=== PATIENT | female | born 1990 | race Caucasian/White ===

== ENCOUNTER 2018-08-04 19:10 | Inpatient (IN) ==
[2018-08-05] MEDS: Sod Chloride 0.9% Inj 1,000 ML IV.CONT SCH ×2 (06:37→18:48)
[2018-08-05 07:05] LABS: Chloride 106 meq/L (98-107); Potassium 3.8 meq/L (3.5-5.1); Sodium 139 meq/L (136-145)
[2018-08-05 07:10] LABS: Calcium 8.1 mg/dL (8.5-10.1)
[2018-08-05 07:11] LABS: Albumin 2.9 g/dL (3.4-5.0); Anion Gap 8 meq/L (5-15); Blood Urea Nitrogen 4 mg/dL (7-18); Carbon Dioxide 25.5 meq/L (21.0-32.0); Glucose,Random 88 mg/dL (74-106)
[2018-08-05 07:14] LABS: Alanine Aminotransferase 677 U/L (10-53); Aspartate Aminotransferase 330 U/L (15-37); Glomerular Filtration Rate Greater Than 89 mL/min (>89)
[2018-08-05 07:16] LABS: Total Protein 7.2 g/dL (6.4-8.2)
[2018-08-05 07:17] LABS: Alkaline Phosphatase 445 U/L (45-117)
--- NOTE | 2018-08-05 08:07 | P.HPIM ---
History of Present Illness Primary Care Physician: UNKNOWN Chief Complaint: Jaundice History of Present Illness: patient is a 28 y/o female with no significant past medical history, IVDA, who presented to ER with Jaundice. she says that she started to have abdominal pain yesterday. pain was more or less epigastric and fairly constant. pain was associated with nausea but with no emesis, change in BM, fever or chills. she says that she noticed that ' her eyes were yellow yesterday'. Review of Systems Review of Systems: all other systems reviewed are negative [facility] Medical History Medical History Hx of intravenous drug use, in remission (Acute) Surgical History Surgical History Hx of section (Acute) Social History Social History Substance History: Past History Second Hand Smoke Exposure: Yes Smoking Status: Current every day smoker Tobacco Type: Cigarettes How Often Do You Have a Drink Containing Alcohol: Never Medications and Allergies Allergies Allergy/AdvReac Type Severity Reaction Status Date / Time No Known Allergies Allergy Verified 08/04/18 19:31 Home Medications Medication Instructions Recorded Confirmed Type No Known Home Medications 08/04/18 08/04/18 History Active Medications: Active Medications Ceftriaxone Sodium 1,000 mg/ (Sodium Chloride) 100 mls @ 200 mls/hr IV.SIG Q24H MIRELA Sodium Chloride (Ns Inj) 1,000 mls @ 100 mls/hr IV.CONT .Q10H MIRELA Last Admin: 08/05/18 06:37 Dose: 100 mls/hr Ondansetron HCl (Zofran Inj) 4 mg IV.PUSH Q6H PRN PRN Reason: NAUSEA OR VOMITING Sodium Chloride (Ns Flush) 2 ml IV.FLUSH BID MIRELA Sodium Chloride (Ns Flush) 2 ml IV.FLUSH PRN PRN PRN Reason: FLUSH AFTER USING IV ACCESS Physical Exam Vital signs: Last Vital Signs Temp 98.5 F 08/05/18 04:00 Pulse 66 08/05/18 04:00 Resp 16 08/05/18 04:00 BP 110/69 08/05/18 04:00 Pulse Ox 98 08/05/18 04:00 Intake & Output 08/03/18 08/04/18 08/05/18 08/06/18 06:59 06:59 06:59 06:59 Weight 74 kg Constitutional no acute distress Routine HEENT Exam Eye: Present PERRL Comments: yellowish discoloration of the conjunctivae. Routine Neck Exam Present supple Routine Respiratory Exam Present CTA bilaterally Routine Cardiovascular Exam Present RRR Routine Abdominal Exam Present soft and tenderness Comments: mild epigastric tenderness Routine Extremities Exam Comments: no pedal edema. Routine Neurological Exam Present alert and oriented X3 Results Labs CBC & Chem 7: 08/05/18 08:36 08/05/18 05:15 Caprini VTE Risk Assessment Caprini VTE Risk Assessment: No/Low Risk (score <= 1) Caprini Risk Assessment Model: Point Value = 1 Point Value = 2 Point Value = 3 Point Value = 5 Age 41-60 Minor surgery BMI > 25 kg/m2 Swollen legs Varicose veins or History of unexplained or recurrent spontaneous Oral contraceptives or hormone replacement Sepsis (< 1 month) Serious lung disease, including pneumonia (< 1 month) Abnormal pulmonary function Acute myocardial infarction Congestive heart failure (< 1 month) History of inflammatory bowel disease Medical patient at bed rest Age 61-74 Arthroscopic surgery Major open surgery (> 45 min) Laparoscopic surgery (> 45 min) Malignancy Confined to bed (> 72 hours) Immobilizing plaster cast Central venous access Age >= 75 History of VTE Family history of VTE Factor V Leiden Prothrombin [id number] Lupus anticoagulant Anticardiolipin antibodies Elevated serum homocysteine Heparin-induced thrombocytopenia Other congenital or acquired thrombophilia Stroke (< 1 month) Elective arthroplasty Hip, pelvis, or leg fracture Acute spinal cord injury (< 1 month) Prophylaxis Regimen: Total Risk Factor Score Risk Level Prophylaxis Regimen 0-1 Low Early ambulation 2 Moderate Order ONE of the following: *Sequential Compression Device (SCD) *Heparin 5000 units SQ BID 3-4 Higher Order ONE of the following medications: *Heparin 5000 units SQ TID *Enoxaparin/Lovenox 40 mg SQ daily (WT < 150 kg, CrCl > 30 mL/min) *Enoxaparin/Lovenox 30 mg SQ daily (WT < 150 kg, CrCl > 10-29 mL/min) *Enoxaparin/Lovenox 30 mg SQ BID (WT < 150 kg, CrCl > 30 mL/min) AND/OR *Sequential Compression Device (SCD) 5 or more Highest Order ONE of the following medications: *Heparin 5000 units SQ TID (Preferred with Epidurals) *Enoxaparin/Lovenox 40 mg SQ daily (WT < 150 kg, CrCl > 30 mL/min) *Enoxaparin/Lovenox 30 mg SQ daily (WT < 150 kg, CrCl > 10-29 mL/min) *Enoxaparin/Lovenox 30 mg SQ BID (WT < 150 kg, CrCl > 30 mL/min) AND *Sequential Compression Device (SCD) Assessment and Plan Plan A/P - Jaundice/ acute HAV infection abdominal sonogram pending. GI consulted. will monitor the LFT's. -possible UTI started on IV Rocephin- follow the UC. Discussed Condition With: the patient. Discharge Planning: home when stable and GI w/u completed. H&P: Quality VTE Deep Vein Thrombosis/Pulmonary Embolism Present on Admission: No
[2018-08-05 08:57] LABS: Hematocrit 37.1 % (35.0-46.0); Hemoglobin 12.1 gm/dL (11.6-15.3); Mean Corpuscular HGB Conc 32.5 % (32.0-36.0); Mean Corpuscular Hemoglobin 28.2 pg (27.0-34.0); Mean Corpuscular Volume 86.7 fL (80.0-100.0); Mean Platelet Volume 8.5 fL (7.0-11.0); Platelet Count 381 th/mm3 (150-450); Red Blood Count 4.28 mil/mm3 (4.00-5.30); Red Cell Distribution Width 13.8 % (11.6-17.2); White Blood Count 5.9 th/mm3 (4.0-11.0)
--- NOTE | 2018-08-05 09:25 | US ---
EXAM DATE: 08/05/2018 8:26 AM EST AGE/SEX: 28 years / Female INDICATIONS: Painless jaundice with nausea and vomiting. CLINICAL DATA: This is the patient's initial encounter. Patient reports that signs and symptoms have been present for 3 days and indicates a pain score of 0/10. MEDICAL/SURGICAL HISTORY: . History of IVDU. section. COMPARISON: [facility], CT ABDOMEN & PELVIS W CONTRAST, 08/04/2018. . MEASUREMENTS: Liver:__ 17.1 cm. Common Bile Duct:__ 4mm. FINDINGS: Liver: Slightly less than 1 cm hyperechoic lesion in the posterior aspect of the left lobe of the li sahra is presumably small hemangioma. No evidence of biliary ductal dilatation. Portal Vein: Hepatopedal flow seen in portal vein. Common Duct: No intraluminal mass or stone visualized. Gallbladder: Nondistended with moderate wall thickening and likely minimal pericholecystic fluid. No definite stones Pancreas: The visualized portions are within normal limits Right Kidney: Increased echogenicity. No mass or hydronephrosis. Other: None. CONCLUSION: 1. Small probable left lobe liver hemangioma 2. Abnormal gallbladder appearance Electronically signed by: Francois Chapman MD Board Certified Radiologist 08/05/2018 9:23 AM EST
[2018-08-05 09:44] LABS: Lymphocytes 36 % (9-44); Monocytes 8 % (0-8); Platelet Estimate Normal (Normal); Platelet Morphology Normal (Normal); RBC Morphology Normal (Normal)
[2018-08-05 10:15] LABS: Amphetamine Screen,Urine Neg (Neg)
[2018-08-05 10:21] LABS: Barbiturate Screen,Urine Neg (Neg)
[2018-08-05 10:23] LABS: Cannabinoid Screen,Urine Neg (Neg)
[2018-08-05 10:24] LABS: Cocaine Screen,Urine Neg (Neg)
[2018-08-05 10:26] LABS: Opiate Screen,Urine Neg (Neg)
[2018-08-05] MEDS ORDERED: Sincalide Inj 5 MCG Vial IV.PUSH ONE (17:14)
--- NOTE | 2018-08-05 17:48 | P.CONGS ---
[facility] Gen Surgery Consult Note Consult date: 08/05/18 Reason for consult: abdominal pain Requesting physician: Luigi Bryson Narrative: This is a 28 year old female with a past medical history of IVDA that presented to the ED with acute onset of yellowing of her skin that she first noticed Sunday with abdominal pain, nausea and vomiting. The patient reports that several family members in her household have abdominal pain, nausea and vomiting. She reports that she has used IV drugs in the past but has been clean for the past 18 months. She began using again about a week ago. She recently moved back to the area from [place]. A CT abdomen/pelvis was obtained which shows a collapsed gallbladder with diffuse gallbladder wall thickening. An US of the gallbladder shows the gallbladder wall thickening with mild pericholecystic fluid. Her liver enzymes are elevated: total bilirubin 5.7; AST 330; ALT 445; alk phos 445. Her serology is positive for hepatis A. A General Surgery consultation has been requested. Review of Systems All other systems reviewed negative except as stated in [facility] - History History Provided By: Patient - Medical History Medical History: Medical History (Last Updated 08/05/18 @ 17:47 by CRISTY Garcia) Intravenous drug abuse - Surgical History Surgical History: Surgical History (Last Reviewed 08/05/18 @ 17:42 by CRISTY Garcia) Hx of section - Tobacco History Second Hand Smoke Exposure: Yes Tobacco Use In Past 30 Days: Yes Smoking Status: Current every day smoker Tobacco Type: Cigarettes - Alcohol History How Often Do You Have a Drink Containing Alcohol: Never - Substance Use History Substance History: Active Abuse Medications and Allergies Allergies Allergy/AdvReac Type Severity Reaction Status Date / Time No Known Allergies Allergy Verified 08/04/18 19:31 Active Medications: Active Medications Ceftriaxone Sodium 1,000 mg/ (Sodium Chloride) 100 mls @ 200 mls/hr IV.SIG Q24H MIRELA Last Admin: 08/05/18 08:43 Dose: 200 mls/hr Sodium Chloride (Ns Inj) 1,000 mls @ 100 mls/hr IV.CONT .Q10H MIRELA Last Admin: 08/05/18 06:37 Dose: 100 mls/hr Ondansetron HCl (Zofran Inj) 4 mg IV.PUSH Q6H PRN PRN Reason: NAUSEA OR VOMITING Sincalide (Kinevac Inj) 0.7 mcg 0.01 mcg/kg (0.7 mcg) IV.PUSH ONCE ONE Stop: 08/05/18 17:15 Sodium Chloride (Ns Flush) 2 ml IV.FLUSH BID MIRELA Sodium Chloride (Ns Flush) 2 ml IV.FLUSH PRN PRN PRN Reason: FLUSH AFTER USING IV ACCESS Exam Vital signs: Vital Signs 08/05/18 04:00 08/05/18 08:00 08/05/18 12:00 Temperature 98.5 F 98.8 F 98.4 F Pulse Rate 66 63 64 Respiratory Rate 16 20 20 Blood Pressure 110/69 115/66 103/56 L Pulse Oximetry 98 98 96 Intake & Output 08/04/18 08/05/18 08/05/18 18:59 06:59 18:59 Weight 74 kg Other: Weight On Admission 74 kg Narrative: GENERAL: 28 year old female appearing older than her stated age resting in bed in no acute distress. SKIN: Warm and dry. She is mildly jaundice. HEAD: Atraumatic. Normocephalic. EYES: Pupils equal and round. No injection or drainage. Sclera with a slight hue of yellow. ENT: No nasal bleeding or discharge. Mucous membranes pink and moist. She has very poor dentition. NECK: Trachea midline. CARDIOVASCULAR: Regular rate and rhythm. RESPIRATORY: No accessory muscle use. Clear to auscultation. Breath sounds equal bilaterally. GASTROINTESTINAL: Abdomen soft, nondistended. She has very mild RUQ tenderness with deep palpation. She has a well healed low transverse scar. MUSCULOSKELETAL: Extremities without clubbing, cyanosis, or edema. No obvious deformities. NEUROLOGICAL: Awake and alert. No obvious cranial nerve deficits. Motor grossly within normal limits. Five out of 5 muscle strength in the arms and legs. Normal speech. PSYCHIATRIC: Appropriate mood and affect; insight and judgment normal. Results - Labs 08/05/18 08:36 08/06/18 05:30 Laboratory Results - last 24 hr 08/05/18 08/05/18 08/05/18 05:15 08:36 09:45 CBC w Diff Slide review pending WBC 5.9 RBC 4.28 Hgb 12.1 Hct 37.1 MCV 86.7 MCH 28.2 MCHC 32.5 RDW 13.8 Plt Count 381 MPV 8.5 WBC Differential Manual diff final Seg Neuts % (Manual) 56 Lymphocytes % (Manual) 36 Monocytes % (Manual) 8 Abs Neuts (Manual) 3.3 Differential Comment . Platelet Estimate Normal Platelet Morphology Normal RBC Morphology Normal Sodium 139 Potassium 3.8 Chloride 106 Carbon Dioxide 25.5 Anion Gap 8 BUN 4 L Creatinine 0.60 Estimated GFR Greater than 89 Random Glucose 88 Calcium 8.1 L Total Bilirubin 5.7 H AST 330 H ALT 677 H Alkaline Phosphatase 445 H Total Protein 7.2 Albumin 2.9 L Urine Opiates Screen Neg Ur Barbiturates Screen Neg Ur Amphetamines Screen Neg U Benzodiazepines Scrn Neg Urine Cocaine Screen Neg U Cannabinoids Screen Neg - Imaging Imaging: ITS Impressions Gallbladder Ultrasound 08/05/18 00:00 CONCLUSION: 1. Small probable left lobe liver hemangioma 2. Abnormal gallbladder appearance CT scan - abdomen: image reviewed US - abdomen: image reviewed Assessment and Plan - Plan 28 year old female with elevated LFTs; Hepatitis A; abdominal pain -Repeat LFTs tomorrow -Clear liquids tonight; NPO after MN -Findings of CT and US may be related to acute findings of hepatitis A -Will follow up on labs and exam tomorrow and make further recommendations -Thank you for this consult; We will continue to follow Discussed Condition With: Dr. Mariela Hayes - Attending Attestation The exam, history, and the medical decision-making described in the above note were completed with the assistance of the mid-level provider. I reviewed and agree with the findings presented. I attest that I had a [id number] encounter with the patient on the same day, and personally performed and documented my assessment and findings in the medical record. likely hepatitis no acute gallbladder issues needs fu with GI fu with surgery if persistent RUQ pain after hepatitis resolves
--- NOTE | 2018-08-05 18:24 | MB ---
cc: Luigi Bryson MD,Brittney CHOWDHURY DATE: 08/05/2018 A patient of Brittney Perez MD. REASON FOR CONSULTATION: Upper abdominal pain, nausea, vomiting, elevated liver function tests. HISTORY OF PRESENT ILLNESS: Ms. Hayes is a 28-year-old with a history of IVDA who basically presented to the emergency room with yellowness of the skin. She has also been complaining of right upper quadrant discomfort associated with nausea and vomiting for a few days. She states she does use intravenous Dilaudid. Last use was yesterday. She denies any alcohol or any other substance abuse. She says she has had no previous problems with her liver or her gallbladder that she knows of. REVIEW OF SYSTEMS: The patient is jaundiced and has right upper quadrant discomfort at this time. FAMILY HISTORY: None given. PAST SURGICAL HISTORY: None except section. SOCIAL HISTORY: The patient is a smoker. No alcohol reported. Uses intravenous Dilaudid. ALLERGIES: NONE DOCUMENTED. MEDICINES ON ADMISSION: None. PHYSICAL EXAMINATION: GENERAL: Reveals a well-nourished lady in no apparent distress. VITAL SIGNS: Stable. HEAD AND NECK: Icteric sclerae. LUNGS: Bilateral air entry with rales. ABDOMEN: Soft. Tenderness in the right upper quadrant. No guarding, no rigidity. CENTRAL NERVOUS SYSTEM: Nonfocal. RECTAL: Deferred at this time. LABORATORY DATA: Reveal total bilirubin 5.7, AST 330, ALT 677, alkaline phosphatase 445. White cell count 5.9, hemoglobin 12.1. Ultrasound of the right upper quadrant shows a gallbladder consistent with cholecystitis. IMPRESSION: Acalculous cholecystitis, possible hepatitis. RECOMMENDATIONS: HIDA scan has been ordered. General surgery consult has been requested. Hepatitis profile has also been requested. Continue to monitor labs. Further recommendations to follow based on the above. Thank you for this referral. MD RANDALL Sharma/jon , 05:19 PM , 05:26 PM
[2018-08-05 23:01] LABS: Hepatitis A IgM Antibody Reactive (Nonreactive); Hepatitits B Surface Antigen Nonreactive (Nonreactive)
[2018-08-06] MEDS: Sod Chloride 0.9% Inj 1,000 ML IV.CONT SCH ×3 (03:46→14:24)
[2018-08-06 06:48] LABS: Chloride 108 meq/L (98-107); Potassium 4.1 meq/L (3.5-5.1); Sodium 140 meq/L (136-145)
[2018-08-06 06:52] LABS: Calcium 8.3 mg/dL (8.5-10.1)
[2018-08-06 06:53] LABS: Albumin 2.7 g/dL (3.4-5.0); Anion Gap 7 meq/L (5-15); Blood Urea Nitrogen 4 mg/dL (7-18); Carbon Dioxide 24.6 meq/L (21.0-32.0); Glucose,Random 84 mg/dL (74-106)
[2018-08-06 06:56] LABS: Alanine Aminotransferase 510 U/L (10-53); Aspartate Aminotransferase 268 U/L (15-37); Glomerular Filtration Rate Greater Than 89 mL/min (>89)
[2018-08-06 06:58] LABS: Total Protein 6.9 g/dL (6.4-8.2)
[2018-08-06 06:59] LABS: Alkaline Phosphatase 501 U/L (45-117)
--- NOTE | 2018-08-06 08:15 | P.PNIM ---
Subjective Interval history: f/u; elevated LFT's in no acute distress. denies pain today. no fever. Physical Exam Vital signs: Last Vital Signs Temp 98.4 F 08/06/18 00:00 Pulse 67 08/06/18 00:00 Resp 20 08/06/18 00:00 BP 104/62 08/06/18 00:00 Pulse Ox 98 08/06/18 00:00 Intake & Output 08/04/18 08/05/18 08/06/18 08/07/18 06:59 06:59 06:59 06:59 Intake Total 2099 Balance 2099 Weight 74 kg 73.8 kg Constitutional no acute distress Routine Respiratory Exam Present CTA bilaterally Routine Cardiovascular Exam Present RRR Routine Abdominal Exam Present soft Routine Extremities Exam Comments: no pedal edema. Routine Neurological Exam Present alert and oriented X3 Results Labs CBC & Chem 7: 08/05/18 08:36 08/06/18 05:30 Imaging Imaging: Impressions Gallbladder Ultrasound 08/05/18 00:00 CONCLUSION: 1. Small probable left lobe liver hemangioma 2. Abnormal gallbladder appearance Assessment and Plan Plan A/P - Jaundice/ acute HAV infection vs acalculous cholecystitis GI and general surgery consulted- will continue to monitor LFT's. -possible UTI started on IV Rocephin- follow the UC. Discharge Planning: home when stable and cleared by GI and general surgery. Progress Note: Quality VTE Deep Vein Thrombosis/Pulmonary Embolism Present on Admission: No
--- NOTE | 2018-08-06 16:31 | P.PNGI ---
Subjective Interval history: Doing well, still icteric Physical Exam Vital signs: Vital Signs 08/05/18 20:00 08/06/18 00:00 08/06/18 08:00 Temperature 98.3 F 98.4 F 98.0 F Pulse Rate 67 67 59 L Respiratory Rate 20 20 15 Blood Pressure 99/63 L 104/62 111/72 Pulse Oximetry 97 98 97 08/06/18 12:00 Temperature 98.5 F Pulse Rate 63 Respiratory Rate 15 Blood Pressure 111/68 Pulse Oximetry 99 Intake & Output 08/05/18 08/06/18 08/06/18 18:59 06:59 18:59 Intake Total 1100 / 1100 1000 / 1000 1000 / 1000 Balance 1100 / 1100 1000 / 1000 1000 / 1000 Weight 73.8 kg Intake: IV 1100 / 1100 1000 / 1000 1000 / 1000 NS Inj 1,000 ML @ 100 mls/hr IV 1000 / 1000 1000 / 1000 900 / 900 .CONT .Q10H MIRELA Rx#:[id number] Rocephin Inj 1,000 MG In NS Inj 100 / 100 100 / 100 100 ML @ 200 mls/hr IV.SIG Q24H MIRELA Rx#:[id number] Oral 0 / 0 Other: # Voids 4 Date of Last Bowel Movement 08/05/18 # Bowel Movements 1 - Constitutional no acute distress - Routine HEENT Exam Head: Present: normocephalic Eye: Present: EOMI, scleral injection - Routine Respiratory Exam Present: CTA bilaterally - Routine Cardiovascular Exam Present: RRR - Routine Abdominal Exam Present: soft, normoactive bowel sounds Results - Labs CBC & Chem 7: 08/05/18 08:36 08/06/18 05:30 Laboratory Results - last 24 hr 08/05/18 08/06/18 08:36 05:30 Sodium 140 Potassium 4.1 Chloride 108 H Carbon Dioxide 24.6 Anion Gap 7 BUN 4 L Creatinine 0.57 Estimated GFR Greater than 89 Random Glucose 84 Calcium 8.3 L Total Bilirubin 6.2 H AST 268 H ALT 510 H Alkaline Phosphatase 501 H Total Protein 6.9 Albumin 2.7 L Hepatitis A IgM Ab Reactive H Hep Bs Antigen Nonreactive Hep B Core IgM Ab Nonreactive Hep C IgG Ab Nonreactive Assessment and Plan - Plan Seen and examined, doing ok. Acute Hep A. Hida scan cancelled. Liquid diet. GI will sign off, reconsult as needed. Thank you
--- NOTE | 2018-08-06 17:19 | P.PNGS ---
Subjective Interval history: Resting in bed No issues Physical Exam Vital signs: Vital Signs 08/05/18 20:00 08/06/18 00:00 08/06/18 08:00 Temperature 98.3 F 98.4 F 98.0 F Pulse Rate 67 67 59 L Respiratory Rate 20 20 15 Blood Pressure 99/63 L 104/62 111/72 Pulse Oximetry 97 98 97 08/06/18 12:00 Temperature 98.5 F Pulse Rate 63 Respiratory Rate 15 Blood Pressure 111/68 Pulse Oximetry 99 Intake & Output 08/05/18 08/06/18 08/06/18 18:59 06:59 18:59 Intake Total 1100 / 1100 1000 / 1000 1000 / 1000 Balance 1100 / 1100 1000 / 1000 1000 / 1000 Weight 73.8 kg Intake: IV 1100 / 1100 1000 / 1000 1000 / 1000 NS Inj 1,000 ML @ 100 mls/hr IV 1000 / 1000 1000 / 1000 900 / 900 .CONT .Q10H MIRELA Rx#:[id number] Rocephin Inj 1,000 MG In NS Inj 100 / 100 100 / 100 100 ML @ 200 mls/hr IV.SIG Q24H MIRELA Rx#:[id number] Oral 0 / 0 Other: # Voids 4 Date of Last Bowel Movement 08/05/18 # Bowel Movements 1 Narrative: Alert and awake Abd: soft; non tender Results - Labs 08/05/18 08:36 08/06/18 05:30 Laboratory Results - last 24 hr 08/05/18 08/06/18 08:36 05:30 Sodium 140 Potassium 4.1 Chloride 108 H Carbon Dioxide 24.6 Anion Gap 7 BUN 4 L Creatinine 0.57 Estimated GFR Greater than 89 Random Glucose 84 Calcium 8.3 L Total Bilirubin 6.2 H AST 268 H ALT 510 H Alkaline Phosphatase 501 H Total Protein 6.9 Albumin 2.7 L Hepatitis A IgM Ab Reactive H Hep Bs Antigen Nonreactive Hep B Core IgM Ab Nonreactive Hep C IgG Ab Nonreactive - Imaging Imaging: ITS Impressions Gallbladder Ultrasound 08/05/18 00:00 CONCLUSION: 1. Small probable left lobe liver hemangioma 2. Abnormal gallbladder appearance Assessment and Plan - Plan 28 year old female with elevated LFTs; Hepatitis A; abdominal pain -Repeat LFTs increased -Advance to regular diet -Findings of CT and US likely related to acute findings of hepatitis A -Continue supportive care for hepatitis A -No surgical plans
[2018-08-07] MEDS: Sod Chloride 0.9% Inj 1,000 ML IV.CONT SCH (02:11)
--- NOTE | 2018-08-07 08:57 | P.PNIM ---
Subjective Interval history: f/u; acute hepatitis in no acute distress. minimal to mild abdominal pain. no nausea/ vomiting. no fever. Results Labs CBC & Chem 7: 08/05/18 08:36 08/06/18 05:30 Assessment and Plan Plan A/P - Jaundice/ acute HAV infection GI and general surgery consulted and signed off; no plan for surgery. continue with supportive care; will follow LFT's as outpatient to ensure the recovery. -possible UTI UC with e-coli- dc on Cipro. Discharge Planning: home today if LFT's stable. see med list. needs a f/u with PCP with repeated LFT's next week. case management consulted. d/w the patient. Progress Note: Quality VTE Deep Vein Thrombosis/Pulmonary Embolism Present on Admission: No
--- NOTE | 2018-08-07 09:02 | P.DS ---
DS: Providers Date of admission: 08/06/18 14:04 Primary care physician: DRE Consults: 08/05/18 03:12 Consult to Gastroenterology Routine Consulting Provider: Luigi Bryson Reason for Consultation: painless jaundice, Hep A, transaminitis Notified:: Service Spoke with:: Mandie Date Notified:: 08/05/18 Time Notified:: 03:34 Ordering Provider: PADMA 08/05/18 17:14 Consult to General Surgery Routine Consulting Provider: Jordi Sierra Reason for Consultation: cholecystitis Notified:: Service Spoke with:: Dodie Date Notified:: 08/05/18 Time Notified:: 17:27 Ordering Provider: JC Brief History from admission: patient is a 28 y/o female with no significant past medical history, IVDA, who presented to ER with Jaundice. she says that she started to have abdominal pain yesterday. pain was more or less epigastric and fairly constant. pain was associated with nausea but with no emesis, change in BM, fever or chills. she says that she noticed that ' her eyes were yellow yesterday'. DS: Summary - Jaundice/ acute HAV infection vs acalculous cholecystitis GI and general surgery consulted and signed off; no plan for surgery. -possible UTI UC with e-coli- dc on Cipro. Time Spent with Patient Total time spent providing and/or coordinating discharge services:< 35 min. Quality: VTE Deep Vein Thrombosis/Pulmonary Embolism Present on Admission: No Exam Narrative Exam Narrative: patient in no acute distress. has minimal to mild RUQ tenderness. no pedla edema and bilateral air entry present on lung exam. Results Procedures completed during hospitalization: none Impressions ITS Impressions Gallbladder Ultrasound 08/05/18 00:00 CONCLUSION: 1. Small probable left lobe liver hemangioma 2. Abnormal gallbladder appearance Discharge Plan Discharge Disposition Patient Disposition: Discharge Home Discharge Condition Condition: Fair Discharge Order Discharge Orders: Discharge Order (Routine); Ordered 08/07/18 Ordered By: Linden Perez Physicians Team Primary Care Provider: DRE, Attending Provider: Linden Perez Other Providers: Luigi Bryson ; Jordi Sierra Rxs /Orders / Referrals /Forms Prescriptions: New ciprofloxacin HCl [Cipro] 250 mg tablet 250 mg PO BID Qty: 6 RF: 0 Referrals: UNKNOWN, [Primary Care Provider] - See Instructions Discharge Instructions Patient Printed Instructions: Ciprofloxacin (By mouth), Jaundice (DC) Post Discharge Care Plan Care Plan Goals: Please call your Primary Care Physician's office to book the appointment to be seen within 1 week. Discharge Planning: home today if LFT's stable. see med list. needs a f/u with PCP with repeated LFT's next week. Your Health Problems: Goals to Promote Your Health: * To prevent worsening of your condition * To maintain your health at the optimal level Directions to Meet Your Goals: * Take your medications as prescribed * Follow your dietary instruction * Follow activity as directed * Keep your appointments as scheduled * Take your immunizations and boosters as scheduled * If your symptoms worsen call your PCP * If no PCP go to Urgent Care or Emergency Room Smoking is dangerous to your health. Avoid second hand smoke. You may reach the 24-hour crisis hotline for domestic abuse at . Status ED Status: Admitted Observation Patient Discharge Information Discharge Date/Time: 08/07/18 16:30
[2018-08-07 09:51] LABS: Albumin 2.6 g/dL (3.4-5.0)
[2018-08-07 09:56] LABS: Total Protein 6.9 g/dL (6.4-8.2)
[2018-08-07 10:27] VITALS: RESP 18
[2018-08-07 13:03] VITALS: BP 115/67; PULSE 72; TEMP 98.9; O2SAT 98
== END 2018-08-07 16:30 | disposition home or self-care (01) | DRG 442 ==
LOC: NEDDLT 19:10 → INTOOBSV 08-05 02:00 → PH3 08-05 02:00
PROVIDERS: ADMIT Internal Medicine; ATTEND Internal Medicine
CPT/HCPCS: 76705; 80053; 80074; 80076; 80307; 85025; J0696; J7030